=== PATIENT | male | born 1975 | race Caucasian/White ===

== ENCOUNTER 2017-05-09 13:20 | Emergency (ER) | payer MEDICAID, SELFPAY ==
[2017-05-09 13:50] VITALS: BP 126/81; PULSE 110; RESP 20; TEMP 37.1; O2SAT 97; BMI 34.9
[2017-05-09 14:27] LABS: UTC Influenza A Antigen Negative (Negative); UTC Influenza B Antigen Negative (Negative)
--- NOTE | 2017-05-09 14:31 | HMH.EDUTC ---
[facility] [place] Disposition Clinical Impression: Upper respiratory infection Qualifiers: URI type: unspecified URI Qualified Code(s): J06.9 - Acute upper respiratory infection, unspecified Disposition: Home, Self-Care Condition on Discharge: Good Instructions: Sinusitis, DI for Sinusitis, Cough Additional Instructions: * Monitor Temp. Tylenol and/or Ibuprofen as needed. ER if fever is no less than 101 despite alternating Tylenol and Ibuprofen * Encourage fluids, water, Gatorade, powerade, pedialyte if /toddler/or child * Warm salt water gargles for throat irritation *Warm fluids *Sore throat lozenges *Sleep elevated *humidifier or vaporizer Lots of rest Increase fluids, water, Gatorade, powerade *Flonase 2 sprays each nostril daily but may take 2-3 days to notice improvement with it *Bromfed may cause drowsiness. Know how it effect you or your child. Before driving, caring for small children or sending your child to school *Your throat swab was sent to lab for culture. Those results area typically sent to your primary care physician. Be sure to follow up in 2-3 days if no improvement so they can review those results and treat if necessary If you dont have primary care I recommend you get one, but in the mean time you will have to return to a walk in clinic Follow up IMMEDIATELY for new or worsening of symptoms OR no noticeable improvement over the next 48-72 hours. 911 immediately for any life threatening symptoms such as chest pain or difficulty breathing Prescriptions: Azithromycin [Z-Salo 250mg Tab] 250 mg PO UD DOSE PK #6 tab Brompheniramine/Pseudoephed/Dm [Bromfed DM Cough Syrup 5mL] 10 ml PO Q4H PRN #200 syrup PRN Reason: Cough predniSONE [Prednisone 20mg Tab] 20 mg PO BID #10 tab Referrals: José Correa [Primary Care Provider] - Time of Disposition: 14:39 Medical Decision Making Vital Signs: 05/09/17 13:50 Temperature 98.7 F Temperature Source Temporal Artery Scan Pulse Rate [Right Brachial] 110 H Respiratory Rate 20 Blood Pressure [Right Arm] 126/81 Blood Pressure Mean [Right Arm] 96 Blood Pressure Source [Right Arm] Automatic Cuff Blood Pressure Position [Right Arm] Sitting 02 Sat by Pulse Oximetry 97 Oxygen Delivery Method Room Air - Lab Data Lab Results 05/09/17 14:27: Influenza Type A Ag Negative, Influenza Type B Ag Negative - Gian Inquiry Pt receiving controlled substance: No Gian was queried for this patient: No [facility] [place] HPI - General Stated complaint: cough congestion chest congestion Mode of Arrival: Ambulatory Source of Information: Patient Limitations: No Limitations Description of Symptoms (Recalled from Triage Doc. by RN): C/O CONGESTION, COUGH, AND ACHES HEENT Symptoms (Recalled from RN notes): No Resp Symptoms (Recalled from RN notes): Yes (COUGH AND CONGESTION) Skin Symptoms (Recalled from RN notes): No MS Symptoms (Recalled from RN notes): Yes (BODYACHES) Functional Status (Recalled from RN notes): N/A - History of Present Illness Provider Complaint: Patient state that he has not been feeling well since Sunday States that he feels like he may have the flu or sinus infection State that a friend of his was flu positive State that he has sore throat cough and feeling sinus pain and pressure behind his eyes and in his ears - Related Data Previous Rx's Medication Instructions Recorded Azithromycin [Z-Salo 250mg Tab] 250 mg PO UD DOSE PK #6 tab 05/09/17 Brompheniramine/Pseudoephed/Dm 10 ml PO Q4H PRN #200 syrup 05/09/17 [Bromfed DM Cough Syrup 5mL] predniSONE [Prednisone 20mg 20 mg PO BID #10 tab 05/09/17 Tab] Allergies Allergy/AdvReac Type Severity Reaction Status Date / Time hydrocodone [HYDROCODONE] Allergy Intermediate I-RASH Unverified 04/17/17 15:03 - Worker's Comp Is this a Worker's Comp case?: No [facility] History I have reviewed the patient's past medical history: Yes - *Social History Smoking Status: Current every day smoker Tob
--- NOTE | 2017-05-09 14:34 | ED_ITS ---
[facility] [place] Disposition Clinical Impression: Upper respiratory infection Qualifiers: URI type: unspecified URI Qualified Code(s): J06.9 - Acute upper respiratory infection, unspecified Disposition: Home, Self-Care Condition on Discharge: Good Instructions: Sinusitis, DI for Sinusitis, Cough Additional Instructions: * Monitor Temp. Tylenol and/or Ibuprofen as needed. ER if fever is no less than 101 despite alternating Tylenol and Ibuprofen * Encourage fluids, water, Gatorade, powerade, pedialyte if /toddler/or child * Warm salt water gargles for throat irritation *Warm fluids *Sore throat lozenges *Sleep elevated *humidifier or vaporizer Lots of rest Increase fluids, water, Gatorade, powerade *Flonase 2 sprays each nostril daily but may take 2-3 days to notice improvement with it *Bromfed may cause drowsiness. Know how it effect you or your child. Before driving, caring for small children or sending your child to school *Your throat swab was sent to lab for culture. Those results area typically sent to your primary care physician. Be sure to follow up in 2-3 days if no improvement so they can review those results and treat if necessary If you don? t have primary care I recommend you get one, but in the mean time you will have to return to a walk in clinic Follow up IMMEDIATELY for new or worsening of symptoms OR no noticeable improvement over the next 48-72 hours. 911 immediately for any life threatening symptoms such as chest pain or difficulty breathing Prescriptions: Azithromycin [Z-Salo 250mg Tab] 250 mg PO UD DOSE PK #6 tab Brompheniramine/Pseudoephed/Dm [Bromfed DM Cough Syrup 5mL] 10 ml PO Q4H PRN # 200 syrup PRN Reason: Cough predniSONE [Prednisone 20mg Tab] 20 mg PO BID #10 tab Referrals: José Correa [Primary Care Provider] - Time of Disposition: 14:39 Medical Decision Making Vital Signs: 05/09/17 13:50 Temperature 98.7 F Temperature Source Temporal Artery Scan Pulse Rate [Right Brachial] 110 H Respiratory Rate 20 Blood Pressure [Right Arm] 126/81 Blood Pressure Mean [Right Arm] 96 Blood Pressure Source [Right Arm] Automatic Cuff Blood Pressure Position [Right Arm] Sitting 02 Sat by Pulse Oximetry 97 Oxygen Delivery Method Room Air - Lab Data Lab Results 05/09/17 14:27: Influenza Type A Ag Negative, Influenza Type B Ag Negative - Gian Inquiry Pt receiving controlled substance: No Gian was queried for this patient: No [facility] [place] HPI - General Stated complaint: cough congestion chest congestion Mode of Arrival: Ambulatory Source of Information: Patient Limitations: No Limitations Description of Symptoms (Recalled from Triage Doc. by RN): C/O CONGESTION, COUGH , AND ACHES HEENT Symptoms (Recalled from RN notes): No Resp Symptoms (Recalled from RN notes): Yes (COUGH AND CONGESTION) Skin Symptoms (Recalled from RN notes): No MS Symptoms (Recalled from RN notes): Yes (BODYACHES) Functional Status (Recalled from RN notes): N/A - History of Present Illness Provider Complaint: Patient state that he has not been feeling well since Sunday States that he feels like he may have the flu or sinus infection State that a friend of his was flu positive State that he has sore throat cough and feeling sinus pain and pressure behind his eyes and in his ears - Related Data Previous Rx's Medication Instructions Recorded Azithromycin [Z-Salo 250mg Tab] 250 mg PO UD DOSE PK #6 tab 05/09/17
== END 2017-05-09 14:46 | disposition home or self-care (01) ==
PROVIDERS: Emergency Provider Nurse Practitioner; Family Provider Family Medicine; PCP Family Medicine
DX: J06.9 Acute upper respiratory infection, unspecified (principal); Z88.6 Allergy status to analgesic agent; F17.210 Nicotine dependence, cigarettes, uncomplicated
CPT/HCPCS: 87804; 99202